=== PATIENT | female | born 1970 | race Caucasian/White ===

== ENCOUNTER 2018-03-07 14:50 | Emergency (ER) | payer MEDICAID | END 2018-03-07 16:22 | disposition home or self-care (01) | LOC: D.ER 14:50 | DX: J20.9 Acute bronchitis, unspecified (principal) ==

== ENCOUNTER 2018-12-27 13:17 | Emergency (ER) | payer MEDICAID ==
[~2018-12-27] VITALS: Ht 160 cm; Wt 120.5 kg
[2018-12-27 13:31] VITALS: Ht 160 cm; Wt 120.5 kg
[2018-12-27 14:18] LABS: BASOPHILS 0.6 % (0-2); EOSINOPHILS 5.9 % (0-7); HEMATOCRIT 36.2 % (36.0-48.0); HEMOGLOBIN 11.2 g/dL (12-16); IMMATURE GRANULOCYTES 0.2 % (0-5); LYMPHOCYTES 24.3 % (15-50); MCH 23.7 pg (26.0-34.0); MCHC 30.9 g/dL (31.0-37.0); MCV 76.7 fL (80.0-100.0); MEAN PLATELET VOLUME 10.2 fL (7.4-10.4); MONOCYTES 17.1 % (2-11); NEUTROPHILS 51.9 % (40-80); PLATELET COUNT 182 10x3/uL (130-400); RBC 4.72 10x6/uL (4.00-5.40); RDW 14.2 % (11.5-14.5); WBC 5.4 10x3/uL (4.8-10.8)
[2018-12-27 14:40] LABS: ALBUMIN 3.3 g/dL (3.4-5.0); ALKALINE PHOSPHATASE 129 U/L (46-116); ALT (SGPT) 46 U/L (10-68); BILIRUBIN - TOTAL 0.26 mg/dL (0.2-1.3); CALC OSMOLALITY 280 mosm/kg (275-300); CALCIUM 8.3 mg/dL (8.5-10.1); CARBON DIOXIDE 30.1 mmol/L (21.0-32.0); CHLORIDE - SERUM 105 mmol/L (98-107); CREATININE - SERUM 0.9 mg/dL (0.6-1.3); GLUCOSE 89 mg/dL (74-106); POTASSIUM - SERUM 3.8 mmol/L (3.5-5.1); PROTEIN - SERUM 7.2 g/dL (6.4-8.2); SODIUM 142 mmol/L (136-145); UREA NITROGEN 10 mg/dL (7-18); eGFR NON AFRICAN AMERICAN 70 mL/min (90-120)
[2018-12-27 14:52] LABS: CKMB 0.4 U/L (0.0-3.6); CREATINE KINASE 96 UL (21-215); PRO BNP 25 pg/mL (0-125); TROPONIN-I < 0.017 ng/mL (0.000-0.060)
[2018-12-27] MEDS ORDERED: PREDNISONE20 MG PO (16:18)
[2018-12-27] MEDS ORDERED: VIBRAMYCIN 100100 MG PO (16:18)
[2018-12-27] MEDS ORDERED: ALBUTEROL SULF8.5 GM INH (16:18)
[2018-12-27 17:28] VITALS: BP 132/59
== END 2018-12-27 17:28 | disposition home or self-care (01) ==
LOC: D.ER 13:17
PROVIDERS: Family Medicine
DX: J40 Bronchitis, not specified as acute or chronic (principal); R09.89 Other specified symptoms and signs involving the circulatory and respiratory systems

== ENCOUNTER 2019-02-25 13:40 | Emergency (ER) | payer BC, MEDICAID ==
[~2019-02-25] VITALS: Ht 160 cm; Wt 120.5 kg
[~2019-02-25 13:40] MED LIST: ALBUTEROL SULF8.5 GM INH; PREDNISONE20 MG PO; VIBRAMYCIN 100100 MG PO
[2019-02-25 14:08] VITALS: Ht 160 cm; Wt 120.5 kg
[2019-02-25 14:56] LABS: APPEARANCE CLEAR (CLEAR); BILIRUBIN NEGATIVE (NEGATIVE); COLOR YELLOW (YELLOW); GLUCOSE NEGATIVE (NEGATIVE); KETONE NEGATIVE (NEGATIVE); NITRITE NEGATIVE (NEGATIVE); PROTEIN NEGATIVE (NEGATIVE); SPECIFIC GRAVITY 1.015 (1.005-1.020); UROBILINOGEN NORMAL (NORMAL)
[2019-02-25 14:57] LABS: BACTERIA MODERATE /hpf (NONE SEEN); EPITHELIAL CELLS 0-5 /hpf (0-5); RED CELLS - URINE 0-5 /hpf (0-5); WHITE CELLS - URINE 0-5 /hpf (0-5)
[2019-02-25 15:32] LABS: BASOPHILS 0.1 % (0-2); EOSINOPHILS 0.6 % (0-7); HEMOGLOBIN 12.3 g/dL (12-16); IMMATURE GRANULOCYTES 0.3 % (0-5); LYMPHOCYTES 10.4 % (15-50); MCH 23.7 pg (26.0-34.0); MCHC 31.5 g/dL (31.0-37.0); MCV 75.3 fL (80.0-100.0); MEAN PLATELET VOLUME 9.9 fL (7.4-10.4); NEUTROPHILS 80.6 % (40-80); RBC 5.18 10x6/uL (4.00-5.40); RDW 14.4 % (11.5-14.5); WBC 11.6 10x3/uL (4.8-10.8)
[2019-02-25 15:43] LABS: PLATELET COUNT 220 10x3/uL (130-400)
[2019-02-25 15:56] LABS: ALBUMIN 3.5 g/dL (3.4-5.0); ANION GAP 13.3 mmol/L (8-16); BILIRUBIN - TOTAL 0.56 mg/dL (0.2-1.3); CALCIUM 8.8 mg/dL (8.5-10.1); CARBON DIOXIDE 30.5 mmol/L (21.0-32.0); CREATININE - SERUM 1.1 mg/dL (0.6-1.3); POTASSIUM - SERUM 3.8 mmol/L (3.5-5.1); PROTEIN - SERUM 8.6 g/dL (6.4-8.2)
[2019-02-25 17:04] LABS: CREATINE KINASE 48 UL (21-215)
[2019-02-25 17:06] LABS: TROPONIN-I < 0.017 ng/mL (0.000-0.060)
[2019-02-25] MEDS ORDERED: FLAGYL500 MG PO (19:26)
[2019-02-25] MEDS ORDERED: ZOFRAN ODT4 MG/UDTAB PO (19:26)
[2019-02-25] MEDS ORDERED: MACROBID100 MG PO (19:26)
[2019-02-25 19:57] VITALS: BP 118/76
== END 2019-02-25 19:58 | disposition home or self-care (01) ==
LOC: D.ER 13:40
PROVIDERS: Family Medicine
DX: R10.9 Unspecified abdominal pain (principal); N76.0 Acute vaginitis

== ENCOUNTER 2019-03-19 21:27 | Observation (INO) | payer BC, MEDICAID ==
[~2019-03-19] VITALS: Ht 160 cm; Wt 115.3 kg
[~2019-03-19 21:27] MED LIST changes: +FLAGYL500 MG PO; +MACROBID100 MG PO; +ZOFRAN ODT4 MG/UDTAB PO
[2019-03-19 22:28] LABS: HEMATOCRIT 36.4 % (36.0-48.0); HEMOGLOBIN 11.3 g/dL (12-16); MCH 23.3 pg (26.0-34.0); MCV 74.9 fL (80.0-100.0); PLATELET COUNT 253 10x3/uL (130-400); RBC 4.86 10x6/uL (4.00-5.40); RDW 14.6 % (11.5-14.5); WBC 8.6 10x3/uL (4.8-10.8)
[2019-03-19 22:32] LABS: APTT 24.4 SECONDS (22.8-39.4); INR 1.01 (0.85-1.17); PROTIME 12.8 SECONDS (11.6-15.0)
[2019-03-19 22:39] LABS: ALBUMIN 3.2 g/dL (3.4-5.0); ALKALINE PHOSPHATASE 107 U/L (46-116); ALT (SGPT) 34 U/L (10-68); BILIRUBIN - TOTAL 0.25 mg/dL (0.2-1.3); CALC OSMOLALITY 280 mosm/kg (275-300); CALCIUM 8.8 mg/dL (8.5-10.1); CARBON DIOXIDE 30.4 mmol/L (21.0-32.0); CHLORIDE - SERUM 103 mmol/L (98-107); GLUCOSE 144 mg/dL (74-106); POTASSIUM - SERUM 4.1 mmol/L (3.5-5.1); PROTEIN - SERUM 7.8 g/dL (6.4-8.2); SODIUM 139 mmol/L (136-145); UREA NITROGEN 13 mg/dL (7-18); eGFR NON AFRICAN AMERICAN 62 mL/min (90-120)
--- NOTE | 2019-03-19 22:43 | NUR ---
CHEST PAIN 6/10. FIRST NITRO ADMINISTERED.
--- NOTE | 2019-03-19 22:55 | NUR ---
CHEST PAIN 5/10 AT THIS TIME. SECOND NITRO ADMINISTERED.
--- NOTE | 2019-03-19 23:00 | NUR ---
PAIN 3/10. THIRD NITRO ADMINISTERED.
[2019-03-19 23:03] LABS: EOSINOPHILS 2 % (0-7); LYMPHOCYTES 17 % (15-50); MONOCYTES 6 % (2-11); NEUTROPHILS 74 % (40-80); PLATELET ESTIMATE NORMAL
[2019-03-19 23:04] LABS: CKMB 0.4 U/L (0.0-3.6); CREATINE KINASE 258 UL (21-215); MAGNESIUM - SERUM 1.8 mg/dL (1.8-2.4); TROPONIN-I < 0.017 ng/mL (0.000-0.060)
--- NOTE | 2019-03-19 23:05 | NUR ---
PAIN 1/10 AFTER 3RD NITRO.
[2019-03-19 23:36] VITALS: BP 94/40
[2019-03-20] VITALS (7 sets, daily range): BP systolic 117–130; BP diastolic 72–84; Ht 160 cm; Wt 115.3 kg
--- NOTE | 2019-03-20 03:05 | NUR ---
PT ARRIVED TO ROOM 2103 ADMIT ASSESSMENT COMPLETE. PT IS AAO. LEFT WRIST 22G PIV S/L SWAB CAP PLACED. PUT IN HISTORY. PT STATES NO HOME MEDS PRESCRIBED. HISTORY COMPLETE. TELEMETRY PLACED. PT DENIES ANY NEEDS. DENIES ANY CHEST PAIN AT THIS TIME. PT ORIENTED TO ROOM AND CALL LIGHT. NAME AND DATE PLACED ON BOARD. WILL CPOC
--- NOTE | 2019-03-20 03:16 | NUR ---
PT IS 95 NORMAL SINUS ON MONITOR
[2019-03-20 05:05] LABS: CKMB 0.2 U/L (0.0-3.6); CREATINE KINASE 565 UL (21-215); TROPONIN-I < 0.017 ng/mL (0.000-0.060)
--- NOTE | 2019-03-20 05:32 | NUR ---
PT RESTING IN BED. AAO, NO S/S OF DISTRESS. PT DENIES ANY NEEDS. DENIES ANY CHEST PAIN. PT VERBALIZED UNDERSTANDING. NPO UNTIL SEEN BY CARDIO. WILL CPOC
--- NOTE | 2019-03-20 07:22 | NUR ---
REPORT RECEIVED. WILL CONTINUE WITH POC. PT CURRENTLY LYING SEMI FOWLERS. CALL LIGHT W/I REACH. PT IS AAO AND UP AD ANNE MARIE. RR EVEN AND UNLABORED ON RA. L.WRIST IS SALINE LOCKED. PT IS NPO AT THE MOMENT. NO S/S OF DISTRESS NOTED. WILL CTM.
[2019-03-20 11:04] LABS: % SATURATION 9 % (15-55); IRON 26 ug/dl (35-150); TOTAL IRON BIND CAPACITY 267 ug/dl (260-445); UNSAT IRON BIND CAPACITY 241 ug/dl (150-375)
[2019-03-20 11:08] LABS: CKMB 0.4 U/L (0.0-3.6); CREATINE KINASE 586 UL (21-215); TROPONIN-I < 0.017 ng/mL (0.000-0.060)
[2019-03-20 11:33] LABS: FERRITIN 22 ng/mL (3-244)
--- NOTE | 2019-03-20 14:44 | NUR ---
I have reviewed this patient and I concur with the Shift Assessment completed by the Licensed Practical Nurse today this shift.
[2019-03-20 16:26] LABS: CKMB 0.1 U/L (0.0-3.6); CREATINE KINASE 651 UL (21-215)
[2019-03-20 17:04] LABS: TROPONIN-I < 0.017 ng/mL (0.000-0.060)
--- NOTE | 2019-03-20 19:57 | NUR ---
RESUMING PT CARE. PT IS ALERT LAYING IN BED. NO C/O VOICED AT THIS TIME. NO S/S OF DISTRESS NOTED. BED IN LOW POSITION WITH CALL LIGHT IN REACH. WILL CONTINUE TO MONITOR PT AND FOLLOW PLAN OF CARE.
[2019-03-21] VITALS: BP 140/70
--- NOTE | 2019-03-21 03:00 | NUR ---
I have reviewed this patient and I concur with the Shift Assessment completed by the Licensed Practical Nurse today this shift.
[2019-03-21 04:00] VITALS: BP 144/75
[2019-03-21 04:28] LABS: BASOPHILS 0.3 % (0-2); EOSINOPHILS 4.3 % (0-7); HEMATOCRIT 35.3 % (36.0-48.0); HEMOGLOBIN 10.8 g/dL (12-16); IMMATURE GRANULOCYTES 0.4 % (0-5); LYMPHOCYTES 25.2 % (15-50); MCH 23.1 pg (26.0-34.0); MCHC 30.6 g/dL (31.0-37.0); MCV 75.4 fL (80.0-100.0); MEAN PLATELET VOLUME 9.7 fL (7.4-10.4); MONOCYTES 10.8 % (2-11); PLATELET COUNT 216 10x3/uL (130-400); RBC 4.68 10x6/uL (4.00-5.40); RDW 14.8 % (11.5-14.5); WBC 7.4 10x3/uL (4.8-10.8)
[2019-03-21 04:44] LABS: ANION GAP 9.4 mmol/L (8-16); CARBON DIOXIDE 30.7 mmol/L (21.0-32.0); CREATININE - SERUM 0.9 mg/dL (0.6-1.3); POTASSIUM - SERUM 4.1 mmol/L (3.5-5.1)
[2019-03-21 07:46] VITALS: BP 130/76
[2019-03-21] MEDS ORDERED: PROTONIX40 MG PO (10:58)
[2019-03-21 11:39] VITALS: BP 112/52
--- NOTE | 2019-03-21 11:52 | NUR ---
D/C PTS L.WRIST PIV WITH CATHETER TIP FULLY INTACT. RETURNED TELEMETRY TO [facility]. PT IS GOING TO BE DISCHARGED AND VERY HAPPY ABOUT THIS. WAITING ON DISCHARGE PAPERS. NO CURRENT NEEDS. WILL CTM.
--- NOTE | 2019-03-21 12:38 | NUR ---
DISCHARGE TEACHING PROVIDED AND PAPERS SIGNED. PT VERBALIZED UNDERSTANDING AND DENIES ANY QUESTIONS OR CONCERNS. ALL BELONGINGS COLLECTED AND SENT WITH PT. PT READY TO LEAVE NOW WITH FAMILY.
[2019-03-21 13:12] LABS: FOLATE (FOLIC ACID) - SERUM 10.1 ng/mL (>3.0)
--- NOTE | 2019-03-21 15:59 | MORECARE ---
CASE MANAGEMENT DISCHARGE SUMMARY PATIENT: YOSELIN CHI UNIT: [id number] ADM DATE: 03/20/19 AGE: 48 : 66 SEX: F ROOM/BED: D.2104 AUTHOR: SANDRA JAEGER PHYSICIAN: REFERRING PHYSICIAN: MUKESH KOENIG MD DATE OF SERVICE: 03/21/19 Discharge Plan Patient Name: YOSELIN CHI [facility] [facility] 1970 Planned Disposition: Home Anticipated Discharge Date: 03/21/19 Discharge Date: 03/21/2019 Expected LOS: 1 Initial Reviewer: [email or web address] Initial Review Date: 03/21/2019 Generated: 03/21/19 4:58 pm Patient Name: YOSELIN CHI Page [phone] at 1559 All edits/amendments must be made on the electronic document DICTATION DATE: 03/21/19 1558 PIERCER: KANDI 03/21/19 1558 RPT#: [id number] DC DATE:03/21/19 STATUS: DIS IN [facility] [address] [place] [address] END OF REPORT
--- NOTE | 2019-03-22 16:41 | CN ---
PATIENT NAME:YOSELIN CHI MEDICAL RECORD: [id number] : 66 LOCATION:D. D.2104 ADMIT DATE: 03/20/19 ACCOUNT: [id number] CONSULTING PHYSICIAN: ALEN SRIVASTAVA MD REFERRING PHYSICIAN: MUKESH KOENIG MD DATE OF CONSULTATION: 03/20/2019 CARDIOLOGY CONSULTATION DIAGNOSES: 1. Chest pain. 2. Shortness of breath. 3. Family history of coronary artery disease. HISTORY OF PRESENT ILLNESS: Ms. Chi presents with chest pain. She had her first episode of chest pain last night. It did last for multiple hours. It was relieved with nitro in the Emergency Room and it has not recurred with nitro paste. There were some typical components, some atypical components for angina. It was a pressure, heavy sensation like someone was sitting on her chest, however, it radiated over to the right side rather than the left side and there was pain down her right arm. She has a risk factor really only of family history of coronary artery disease. She is a nonsmoker and does not have hypertension and hyperlipidemia. Her EKG is normal. Troponin is normal. PHYSICAL EXAMINATION: GENERAL APPEARANCE: Well-nourished, well-developed, appears stated age. Level of distress, comfortable. PSYCHIATRIC: Mental status, alert, normal affect. Orientation, oriented to time, place and person. EYES: Lids and conjunctiva, noninjected. No discharge, no pallor. ENT: Lips, teeth, gums, normal dentition. Oropharynx, no cyanosis, no pallor. NECK: Carotid arteries, bilateral normal upstroke, no bruits, no thrills. JUGULAR VEINS: No jugular venous pressure or distention. CERVICAL LYMPH NODES: Nontender, nonenlarged. THYROID: Not enlarged. Nontender. No nodules. LUNGS: Respiratory effort, unlabored. CHEST: Normal curvature. No thoracic deformity. No chest wall tenderness. Percussion, resonant. Auscultation, clear. No wheezes, no rales, no rhonchi. CARDIOVASCULAR: Precordial exam, nondisplaced. No heaves or pericardial thrills. Rate and rhythm, regular. Heart sounds, normal S1, normal S2. No S3, no gallop, no rub. Systolic murmur, not heard. Diastolic murmur, not heard. EXTREMITIES: No cyanosis, no edema. Peripheral pulses, full and equal in all extremities, except as noted. No bruits appreciated. ABDOMEN: Soft, nondistended. Normal aorta. No bruit. Nontender. No masses. Liver, nontender, no hepatomegaly. Spleen, nontender, no splenomegaly. MUSCULOSKELETAL: No joint tenderness. No joint swelling. No erythema. NEUROLOGICAL: Normal gait, normal strength, normal tone. SKIN: Warm and dry. OVERALL IMPRESSION: Chest pain, some typical components, some atypical components. She has been more short of breath as of recent. We will get an echocardiogram due to the shortness of breath, dyspnea on exertion and risk stratify with stress testing Cardiolite imaging for the chest pain. Further care depends on the findings of these studies. CONSULT REPORT [id number] YOSELIN CHI TRANSINT:[id number] Voice Confirmation ID: [id number] DOCUMENT ID: [id number] ALEN SRIVASTAVA MD at 1641 CC: [id number] DICTATION DATE: 03/20/19 0753 CLINICAL IMMUNOLOGIST: 03/20/19 0809 DIS IN 03/21/19 [facility] [address] [place] [address]
--- NOTE | 2019-03-22 16:42 | EC ---
PATIENT:YOSELIN CHI DATE OF SERVICE: 03/20/19 SEX: F MEDICAL RECORD: [id number] DATE OF : [birth year] LOCATION:D.M2 D.210 AGE OF PATIENT: 48 ADMISSION DATE: 03/20/19 REFERRING PHYSICIAN: INTERPRETING PHYSICIAN: ALEN KOCH MD ECHOCARDIOGRAM REPORT ECHO CHARGES 4 ECHO COMPLETE Date: 03/20/19 CLINICAL DIAGNOSIS: SOB ECHOCARDIOGRAPHIC MEASUREMENTS (adult normal given) AC root (d.<3.7cm) 3.5 cm LV Septum d (<1.2 cm> 1.5 cm Valve Excursion 2.0 cm LV Septum (systole) 2.0 cm Left Atria (s.<4.0cm> 3.5 cm LVPW d(<1.2cm) 1.1 cm RV (d.<2.3cm) 2.3 cm LVPW (sytole) 1.8 cm LV diastole(<5.6CM) 5.4 cm MV E-F(>70mm/sec) cm LV systole 4.1 cm LVOT Diameter 1.9 cm MV exc.(>10mm) cm Est.ejection fraction (50-75%) % DOPPLER: LVIT cm/sec A 106 cm/sec E 64.0 cm/sec LA cm/sec RVSP 20.0 mmHg LVOT 91.0 cm/sec AOP1/2T m/s Asc. Ao 159 cm/sec RVOT 101 cm/sec RA cm/sec PA 100 cm/sec AV Gradient Peak 10.1 mmHg AV Mean 5.1 mmHg AV Area 1.6 cm MV Gradient Peak 4.5 mmHg MV Mean 1.8 mmHg MV Area cm COMMENTS: Stack Clerk: Ashlie WRIGHTOE Preschool Aide: 1 Dr. Koch TAPE# PACS Pericardial Effusion N DATE OF SERVICE: 03/20/2019 ECHOCARDIOGRAM DATE OF SERVICE: 03/20/2019 FINDINGS: 1. Left ventricular chamber size is within normal limits. Left ventricular systolic function is mildly reduced, overall ejection fraction 40%. There is mild global hypokinesis throughout all segments with no discrete wall motion ECHOCARDIOGRAM REPORT [id number] YOSELIN CHI abnormalities present. 2. Left atrium, right atrium and right ventricular chamber sizes are within normal limits. 3. Valvular structures have normal structure and motion. 4. Doppler interrogation reveals trace tricuspid regurgitation, no other valvular insufficiency or stenosis. Pulmonary systolic pressure is estimated at 20 mmHg. 5. No evidence of pericardial effusion or left ventricular thrombus. TRANSINT:[id number] Voice Confirmation ID: [id number] DOCUMENT ID: [id number] ALEN KOCH MD at 1642 CC: [id number] DICTATION DATE: 03/21/19 0844 CANCELING AND CUTTING CONTROL CLERK: 03/21/19 0954 DIS IN 03/21/19 [place] [id number] [place] [id number]
--- NOTE | 2019-03-22 16:42 | ST ---
PATIENT:YOSELIN CHI MEDICAL RECORD: [id number] SEX: F LOCATION:[facility] D.210 ORDER #: ADMISSION DATE: 03/20/19 AGE OF PATIENT: 48 REFERRING PHYSICIAN: INTERPRETING PHYSICIAN: ALEN SRIVASTAVA MD DATE OF SERVICE: 03/20/2019 PROCEDURE: Nuclear stress test. INDICATION: Chest pain of unknown etiology. She was exercised on standard Lexiscan protocol with 24 mCi of sestamibi injected for stress only images. FINDINGS: Gated SPECT reveals a preserved ejection fraction approximately of 50% with normal thickening and brightening throughout all segments. SPECT imaging: Cardiolite was used as myocardial perfusion agent. There was homogeneous uptake throughout all segments with stress only images with no evidence of inducible ischemia or previous infarction. OVERALL IMPRESSION: 1. This is a normal nuclear stress test with no evidence of inducible ischemia or previous infarction. 2. Gated SPECT reveals a preserved ejection fraction in the 50% range. In this patient with ongoing symptomatology, the current scan does not suggest presence of hemodynamically significant coronary artery disease. TRANSINT:[id number] Voice Confirmation ID: [id number] DOCUMENT ID: [id number] ALEN SRIVASTAVA MD at 1642 CC: [id number] DICTATION DATE: 03/20/19 1527 APPLICATION ASSISTANT: 03/21/19 0333 DIS IN 03/21/19 [place] [id number] [place] [address]
== END 2019-03-21 12:50 | disposition home or self-care (01) ==
LOC: OBSVTIME → D.ER 21:27 → OBSVTIME 03-20 00:03 → D.EDHOLD 03-20 00:03 → D.ER 03-20 00:03 → D.M2 03-20 00:03
PROVIDERS: Family Medicine; ADMIT Internal Medicine Nephrology; ATTEND Internal Medicine Nephrology
DX: R07.89 Other chest pain (principal); D50.9 Iron deficiency anemia, unspecified; E66.01 Morbid (severe) obesity due to excess calories; Z68.41 Body mass index [BMI] 40.0-44.9, adult; I50.9 Heart failure, unspecified; J44.9 Chronic obstructive pulmonary disease, unspecified; Z82.49 Family history of ischemic heart disease and other diseases of the circulatory system

== ENCOUNTER → 2019-12-06 14:31 | Outpatient (CLI) | payer BC, MEDICAID ==
[2019-03-20 12:15] VITALS: BMI 44.4
[~2019-12-06 14:31] MED LIST changes: +ADVAIR 250-501 EAC1 INH; +AUGMENTIN 875-11 TAB PO; +BUTALB-APAP-CA1 EACH PO; +COZAAR25 MG PO; +GABAPENTIN300 MG PO; +NEURONTIN 300300 MG PO; +PROAIR INH; +PROTONIX40 MG PO; +PROVENTIL/2.5 MG/3 M INH; +TRAZODONE HCL150 MG PO; +ULTRAM50 MG PO
[2019-12-06 15:30] LABS: BASOPHILS 0.2 % (0-2); EOSINOPHILS 2.9 % (0-7); HEMOGLOBIN 10.7 g/dL (12-16); IMMATURE GRANULOCYTES 0.2 % (0-5); LYMPHOCYTES 17.8 % (15-50); MCH 22.7 pg (26.0-34.0); MCHC 29.7 g/dL (31.0-37.0); MCV 76.4 fL (80.0-100.0); MEAN PLATELET VOLUME 9.7 fL (7.4-10.4); MONOCYTES 8.1 % (2-11); NEUTROPHILS 70.8 % (40-80); PLATELET COUNT 196 10x3/uL (130-400); RBC 4.71 10x6/uL (4.00-5.40); RDW 15.2 % (11.5-14.5); WBC 5.8 10x3/uL (4.8-10.8)
== END | disposition home or self-care (01) ==
LOC: D.LAB 14:31 → D.RT 16:00
PROVIDERS: ATTEND Internal Medicine Pulmonary Disease
DX: R06.00 Dyspnea, unspecified (principal)

== ENCOUNTER → 2021-01-08 08:12 | Outpatient (CLI) | payer MEDICAID ==
[2019-12-13 12:13] VITALS: BMI 40.5
--- NOTE | ~2021-01-08 | EC ---
PATIENT:YOSELIN CHI DATE OF SERVICE: 01/08/21 SEX: F MEDICAL RECORD: [id number] DATE OF : 66 LOCATION:D.RT AGE OF PATIENT: 50 ADMISSION DATE: 01/08/21 REFERRING PHYSICIAN: INTERPRETING PHYSICIAN: EVER DURAN MD ECHOCARDIOGRAM REPORT ECHO CHARGES 4 ECHO COMPLETE Date: 01/08/21 CLINICAL DIAGNOSIS: HEART FAILURE ECHOCARDIOGRAPHIC MEASUREMENTS (adult normal given) AC root (d.<3.7cm) 3.2 cm LV Septum d (<1.2 cm> 1.2 cm Valve Excursion 2.0 cm LV Septum (systole) 1.3 cm Left Atria (s.<4.0cm> 4.2 cm LVPW d(<1.2cm) 1.0 cm RV (d.<2.3cm) 3.5 cm LVPW (sytole) 1.3 cm LV diastole(<5.6CM) 4.5 cm MV E-F(>70mm/sec) cm LV systole 3.1 cm LVOT Diameter 2.0 cm MV exc.(>10mm) cm Est.ejection fraction (50-75%) 55 % DOPPLER: LVIT cm/sec A 97 cm/sec E 76 cm/sec LA cm/sec RVSP 89 mmHg LVOT 105 cm/sec AOP1/2T m/s Asc. Ao 174 cm/sec RVOT 89 cm/sec RA 3.8 cm/sec PA 100 cm/sec AV Gradient Peak 12 mmHg AV Mean 6 mmHg AV Area 2.2 cm MV Gradient Peak 4 mmHg MV Mean 2 mmHg MV Area cm COMMENTS: Staff Development Manager: 3 SUZY OWENS Water System Operator: 4 Dr. Duran TAPE# Pericardial Effusion N DATE OF SERVICE: PROCEDURE: Transthoracic echocardiogram. FINDINGS: 1. Left ventricle: The Left ventricle shows evidence of left ventricular hypertrophy with a preserved LV systolic function. Endocardium was not well visualized. The patient has evidence of diastolic dysfunction. 2. Right ventricle is mildly dilated with normal function. 3. The left atrium is mildly dilated with normal function. ECHOCARDIOGRAM REPORT [id number] YOSELIN CHI 4. The right atrium is mildly dilated with normal function. 5. The aortic valve is grossly normal, but not well visualized. There is no evidence of significant aortic stenosis or regurgitation. 6. Mitral valve appears to be normal structurally with trace mitral regurgitation. 7. Tricuspid valve shows trivial tricuspid regurgitation and normal right ventricular systolic pressure. 8. Pulmonic valve is not well visualized, but is grossly normal. 9. Pericardium appears to be normal. IMPRESSION: The patient has evidence of mild left ventricular hypertrophy and diastolic dysfunction, but otherwise normal echocardiogram. TRANSINT:[id number] Voice Confirmation ID: [id number] DOCUMENT ID: [id number] EVER DURAN MD CC: [id number] DICTATION DATE: 01/10/21 1520 GOPHERMAN: 01/10/21 2306 DEP CLI 01/08/21 [facility] [address] [place] [address]
== END | disposition home or self-care (01) ==
LOC: D.RT 08:00 → D.ECHO 09:35
PROVIDERS: ATTEND Internal Medicine Pulmonary Disease
DX: J44.9 Chronic obstructive pulmonary disease, unspecified (principal); I50.9 Heart failure, unspecified

== ENCOUNTER 2021-01-18 12:18 | Outpatient (CLI) | payer MEDICAID ==
[~2021-01-18] VITALS: Ht 160 cm; Wt 118.2 kg
[2021-01-18 15:01] VITALS: BP 152/94; Ht 160 cm; Wt 118.2 kg
== END 2021-01-18 16:17 | disposition home or self-care (01) ==
LOC: D.OPS 12:18
PROVIDERS: ATTEND Internal Medicine Hematology & Oncology
DX: D50.9 Iron deficiency anemia, unspecified (principal)

== ENCOUNTER 2021-01-25 13:55 | Outpatient (CLI) | payer MEDICAID ==
[~2021-01-25] VITALS: Ht 160 cm; Wt 118.2 kg
[2021-01-25 14:15] VITALS: Ht 160 cm; Wt 118.2 kg
--- NOTE | 2021-01-25 15:35 | NUR ---
PT DC INSTRUCTIONS REVIEWED AT THIS TIME, PT VERBALIZES UNDERSTANING. PT IV REMOVED AT THIS TIME, INTACT, NO REDNESS OR SWELLING NOTED AT SITE.
--- NOTE | 2021-01-25 15:36 | NUR ---
PT LEFT UNIT AMBULATING AT 1537
[2021-01-26] MEDS ORDERED: TRAZODONE HCL50 MG PO (11:20)
[2021-01-26] MEDS ORDERED: ATROVENT 0.02%2.5 ML UPD (11:21)
[2021-01-26] MEDS ORDERED: AMITRIPTYLINE H50 MG PO (11:24)
== END 2021-01-25 15:37 | disposition home or self-care (01) ==
LOC: D.OPS 13:55
PROVIDERS: ATTEND Internal Medicine Hematology & Oncology
DX: D50.9 Iron deficiency anemia, unspecified (principal)

== ENCOUNTER 2021-01-26 11:04 | Day surgery (SDC) | payer MEDICAID ==
[~2021-01-26] VITALS: Ht 160 cm; Wt 118.2 kg
--- NOTE | ~2021-01-26 | HEMODYNAMI ---
PATIENT:YOSELIN CHI MEDICAL RECORD: [id number] : 66 LOCATION:[facility] ADMISSION DATE: 01/26/21 Generatedon:113:28 Patient name: YOSELIN CHI Patient #: [id number] SSN: : 1970 Date of study: 01/26/2021 Page: Of Hemodynamic Procedure Report Patient Data Patient Demographics Procedure consent was obtained First Name: YOSELIN Gender: Female Last Name: ALON : 1970 Middle Initial: GREOGRIO Age: 50 year(s) Patient #: [id number] Race: Unknown Additional ID: [id number] Contact details Address: [address] [place] [address] circle State: [place] City: [facility] Zip code: [address] Past Medical History Performed procedures and imaging results Date Procedure Procedure Results Comments Stress testing with Positive->Low risk SPECT MPI Allergies Allergen Reaction Date Comments Reported Penicillins 01/26/2021 Admission Admission Data Admission Date: 01/26/2021 Admission Time: 11:04 Arrival Date: 01/26/2021 Arrival Time: 0:00 Height (in.): 63 BSA: 2.15 (m2) Height (cm.): 160.02 BMI: 45.7 (kg/m2) Weight (lbs.): 258 Weight (kg.): 117.03 Procedure Procedure Types Cath Procedure Diagnostic Procedure LHC LH w/Coronaries Procedure Description Procedure Date Procedure Date: 01/26/2021 Procedure Start Time: 13:13 Procedure End Time: 13:24 Procedure Staff Name Function Jf Acosta MD Performing Physician Amanda Beverly RT Monitor Demetria Montesinos RT Scrub Tarik Nj RN Nurse Procedure Data Cath Procedure Fluoroscopy Diagnostic fluoroscopy Total fluoroscopy Time: 0.9 time: 0.9 min min Diagnostic fluoroscopy Total fluoroscopy dose: 347 dose: 347 mGy mGy Contrast Material Contrast Material Type Amount (ml) Isovue 300 41 Entry Location Entry Primary Successful Side Size Upsize Upsize Entry Closure Succes sful Closure Location (Fr) 1 (Fr) 2 (Fr) Remarks Device Remarks Femoral Right 5 Fr Exoseal artery Estimated blood loss: 5 ml Diagnostic catheters Device Type Used For End Catheter Placement MULTIPACK JL 4.0 5Fr Procedure catheter MULTIPACK 3DRC 5Fr Procedure catheter MULTIPACK Pigtail 5 Fr Procedure catheter Procedure Complications No complications Procedure Medications Medication Administration Route Dosage 0.9% NaCl I.V. 100 ml/hr Oxygen etCO2 Nasal cannula 2 l/min Heparin Flush Bag added to field 2 bags (1000units/500ml NS) Lidocaine 2% added to field 20 Versed I.V. 2 mg Fentanyl I.V. 100 mcg Versed I.V. 1 mg Hemodynamics Rest BSA: 2.15 (m2) O2 Consumption: Estimated: 230.88 (ml/min) O2 Consumption indexed : Estimated:107.39 (ml/min/m) Heart Rate: 97 (bpm) Pressure Samples Time Site Value (mmHg) Purpose Heart Use Rate(bpm) 13:19 LV 127/11,12 Snapshot 100 13:19 LV 144/13,17 Snapshot 102 13:20 AO 139/80(102) Pullback 99 13:20 LV 156/102,156 Pullback 99 Gradients Valve Time Site 1 Site 2 Mean SEP/DFP Peak To Heart Use (mmHg) (sec/min) Peak Rate (mmHg) (bpm) Aortic 13:20 LV AO 74 41 17 99 156/102,156 139/80(102) Calculations Valve P-P Mean Valve Index Valve Source Name Gradient Area Flow (cm2) Aortic 17 74 17 74 Snapshots Pre Cath Intra NCS Post Cath Vital Signs Time Heart Resp SPO2 etCO2 NIBP (mmHg) Rhythm Pain Sedation Rate (ipm) (%) (mmHg) Status Level (bpm) 12:54:33 96 10 100 41.1 135/92(106) NSR 0 (11) 10(A) , No pain 12:58:52 98 19 99 39.6 136/88(105) NSR 0 (11) 10(A) , No pain 13:03:05 98 27 99 38.8 138/87(113) NSR 0 (11) 10(A) , No pain 13:07:17 100 21 98 40.3 139/94(114) NSR 0 (11) 10(A) , No pain 13:11:31 96 21 98 39.6 146/93(107) NSR 0 (11) 10(A) , No pain 13:15:48 100 12 99 38.8 141/98(116) NSR 0 (11) 10(A) , No pain 13:20:03 100 23 98 38.7 139/93(121) NSR 0 (11) 10(A) , No pain Medications Time Medication Route Dose Verified Delivered Reason Notes Eff ectiveness by by 12:52:47 0.9% NaCl I.V. 100 Tarik Tarik Per ml/hr Clem Nj physician RN RN 12:52:58 Oxygen etCO2 2 Tarik Tarik for low 02 Nasal l/min Lorigan Lorigan sats cannula RN RN 12:53:10 Heparin Flush added 2 Tarik Tarik used for Bag to bags Lorigan Lorigan procedure (1000units/500ml field RN RN NS) 12:53:20 Lidocaine 2% added 20ml Tarik Tarik for local to vial Lorigan Lorigan anesthetic field RN RN 13:12:49 Versed I.V. 2 mg Tarik Tarik for Lorigan Lorigan sedation RN RN 13:12:57 Fentanyl I.V. 100 Tarik Tarik for mcg Lorigan Lorigan sedation RN RN 13:16:44 Versed I.V. 1 mg Tarik Tarik for Lorigan Lorigan sedation RN clinical pathologist Log Time Note 12:43:30 Informed consent obtained and on chart 12:43:47 Procedure Status Elective Heart Cath (OP). 12:43:49 Tarik Nj RN sent for patient. Start room use. 12:43:50 Time tracking: Regular hours (M-F 7:00 - 5:00) 12:43:53 Plan of Care:Hemodynamics will remain stable., Cardiac rhythm will remain stable., Comfort level will be maintained., Respiratory function will remain adequate., Patient/ family verbilizes understanding of procedure., Procedure tolerated without complication., Recovers from procedure without complications.. 12:44:00 H&P Date Dictated: 01/19/2021 Within 30 days and on chart., H&P Addendum completed by physician on day of procedure. (MUST COMPLETE FOR ALL OUTPATIENTS). 12:44:05 Patient allergic to Penicillins 12:46:52 Patient Weight : 258 lbs 12:46:57 Patient Height : 63 inches 12:47:03 Arrival Date: 01/26/2021 12:00:00 AM 12:48:45 Patient received from Pre/Post Procedure Room to CCL 2 Alert and oriented. Tansferred to table in Supine position. 12:48:46 Warm blankets applied, and camron hugger turned on for patient comfort. 12:48:46 Correct patient and procedure confirmed by team. 12:48:47 ECG and BP/O2 sat monitors applied to patient. 12:52:47 0.9% NaCl 100 ml/hr I.V. was administered by Tarik Nj RN; Per physician; Verbal order read back and verified. 12:52:58 Oxygen 2 l/min etCO2 Nasal cannula was administered by Tarik Nj RN; for low 02 sats; Verbal order read back and verified. 12:53:10 Heparin Flush Bag (1000units/500ml NS) 2 bags added to field was administered by Tarik Nj RN; used for procedure; Verbal order read back and verified. 12:53:20 Lidocaine 2% 20ml vial added to field was administered by Tarik Nj RN; for local anesthetic; Verbal order read back and verified. 12:53:24 Vital chart was started 12:54:57 Baseline sample Acquired. 12:55:00 Rhythm: sinus rhythm 12:55:01 Full Disclosure recording started 12:55:02 Pre-procedure instructions explained to patient. 12:55:04 Family unavailable. 12:55:05 Patient NPO since Midnight. 12:55:07 Is the patient allergic to Iodine/contrast media? No. 12:55:09 Is patient on blood thinner?No 12:55:26 Patient diabetic? No. 12:55:29 Patient not . Patient has had hysterectomy. 12:55:33 Previous problem with sedation/anesthesia? No ? 12:55:35 Snore? Yes 12:55:36 Sleep apnea? No 12:55:38 Deviated septum? No 12:55:38 Opens mouth fully? Yes 12:55:40 Sticks out tongue? Yes 12:55:43 Airway obstruction? Yes COPD 12:55:46 Dentures? No ? 12:56:00 Pre procedure: right dorsailis pedis pulse 1+ Palpable, but thready & weak; easily obliterated 12:56:02 Patient pain scale 0/10 ?. 12:56:08 IV patent on arrival in left hand with 0.9% NaCl at [facility]. 12:56:42 Lab results completed and on chart. 12:57:00 Right groin area was prepped with chlora-prep and draped in sterile fashion 12:57:01 Alarms reviewed by R. N. 12:57:02 Sharps counted by scrub and verified by R.N. 12:58:19 Use device set Femoral Dx 12:58:21 ACIST Syringe (78272) opened to sterile field. 12:58:21 Bag Decanter (2002S) opened to sterile field. 12:58:22 ACIST Hand Control (12634) opened to sterile field. 12:58:23 ACIST Manifold (48040) opened to sterile field. 12:58:24 Tegaderm 4 x 4 (1626W) opened to sterile field. 12:58:25 Medline Cath Pack ([id number]) opened to sterile field. 12:58:26 DIAGNOSTIC Multipack 5Fr catheter set (AM2324) opened to sterile field. 12:58:26 SHEATH 5FR Rincon (IHZ273) opened to sterile field. 12:58:27 EMERALD Guide Wire (293-916) opened to sterile field. 13:06:13 Zero performed for pressure channel P1 13:11:15 --------ALL STOP TIME OUT------ 13:11:15 Final Timeout: patient, procedure, and site verified with staff and physician. All members of the team are in agreement. 13:11:17 Right groin site verified by team. 13:11:20 Fire Safety Assessment: A--An alcohol-based skin anteseptic being used preoperatively., C--Open oxygen or nitrous oxide is being used., D--An ESU, laser, or fiber-optic light is being used. 13:11:22 Physical assessment completed. ASA score P 2 - A patient with mild systemic disease as per Jf Acosta MD. 13:11:24 2) 60-89 Mildly reduced kidney function, and other findings (as for stage 1) point to kidney disease. 13:11:27 Maximum allowable contrast dose (3.7 X eGFR X 0.75)172 ml. 13:11:30 Sedation plan: IV Moderate Sedation Medication:Versed, Fentanyl 13:12:49 Versed 2 mg I.V. was administered by Tarik Nj RN; for sedation; Verbal order read back and verified. 13:12:57 Fentanyl 100 mcg I.V. was administered by Tarik Nj RN; for sedation; Verbal order read back and verified. 13:13:24 Procedure started. 13:13:48 Local anesthetic to right femoral artery with Lidocaine 2% by Jf Acosta MD.INITIAL ACCESS ONLY 13:15:04 A 5 Fr sheath was inserted into the Right Femoral artery 13:15:40 A MULTIPACK JL 4.0 5Fr catheter was advanced over the wire and used for Procedure. 13:16:44 Versed 1 mg I.V. was administered by Tarik Nj RN; for sedation; Verbal order read back and verified. 13:17:17 LCA angiography performed. 13:17:20 Catheter removed. 13:17:25 A MULTIPACK 3DRC 5Fr catheter was advanced over the wire and used for Procedure. 13:18:06 RCA angiography performed. 13:18:19 Catheter removed. 13:18:49 A MULTIPACK Pigtail 5 Fr catheter was advanced over the wire and used for Procedure. 13:19:35 LV gram done using WARREN 13:19:38 Injector settings: Ml/sec: 10, Volume: 20, 13:19:39 LV hemodynamics recorded. 13:19:56 EF : 55 % 13:20:03 Catheter removed. 13:20:04 EXOSEAL 5Fr (EX500) opened to sterile field. 13:20:46 Sheath removed intact; hemostasis achieved with Exoseal to the Right Femoral artery. 13:21:39 Procedure ended.(Physican Out) 13:21:59 Fluoroscopy time 00.90 minutes. 13:22:02 Fluoroscopy dose: 347 mGy 13:22:02 Flurop Dose total: 347 13:22:09 Dose Area Product 78386 mGy/cm. 13:22:13 Contrast amount:Isovue 300 41ml. 13:22:14 Maximum allowable dose exceeded? No. 13:22:15 Sharps counted by scrub and verified by R.N. 13:22:17 Post-op/insertion site Right Femoral artery dressed using a 4 x 4 and Tegaderm. 13:22:20 Post-procedure physical assessment completed. ASA score P 2 - A patient with mild systemic disease as per Jf Acosta MD. 13:22:31 Post procedure instruction explained to patient.Patient verbalizes understanding. 13:22:31 Patient needs reinforcement of post procedure teaching. 13:22:34 Estimated blood loss: 5 ml 13:23:05 Procedure and supply charges have been captured, reviewed, submitted and are correct. 13:23:07 Procedure Complication : No complications 13:23:09 Vital chart was stopped 13:24:11 Post procedure rhythm: unchanged. 13:24:14 [facility] Findings: mild to moderate CAD (<70%) 13:24:16 Operative report dictated upon procedure completion. 13:24:16 See physician's report for complete and final results. 13:24:20 Report given to Pre/Post Procedure Room. 13:24:22 Patient transfered to Pre/Post Procedure Room with Bed. 13:24:24 Procedure ended. 13:24:24 Full Disclosure recording stopped 13:24:31 End room use (Document Last) 13:26:12 End room use (Document Last) 13:26:31 End room use (Document Last) Device Usage Item Name Manufacture Quantity Catalog Hospital Part Current Minimal L ot# / Number Charge Number Stock Stock Serial# Code ACIST Acist 1 85729 440083 354703 519396 20 Syringe Medical (57912) Systems Inc Bag Microtek 1 2001S 558039 40347 756794 5 Decanter Medical Inc. () ACIST Hand Acist 1 30211 209171 810214 087668 5 Control Medical (50397) Systems Inc ACIST Acist 1 62477 852113 261150 241297 5 Manifold Medical (20380) Systems Inc Tegaderm 4 3M 1 1626W 982156 424759 766892 5 x 4 (1626W) Medline Medline 1 [id number] 840736 71365 876072 5 Cath Pack ([id number]) DIAGNOSTIC Cardinal 1 NA9847 839416 20926 194243 30 Multipack Health 5Fr catheter set (QD6182) SHEATH 5FR Terumo 1 RSK838 098519 949835 536562 5 Rincon (FCO924) EMERALD Cardinal 1 502-455 884526 385194 657871 5 Guide Wire [facility] (502-267) MULTIPACK Cardinal 1 922245 5 JL 4.0 5Fr Health catheter MULTIPACK Cardinal 1 463490 5 3DRC 5Fr Health catheter MULTIPACK Cardinal 1 528777 5 Pigtail 5 Health Fr catheter EXOSEAL 5Fr Cardinal 1 EX500 045534 793144 970770 10 (EX500) Health Signature Audit Hume Stage Time Signature Unsigned Intra-Procedure 01/26/2021 Amanda Beverly 1:26:12 PM RT(R) Intra-Procedure 01/26/2021 Tarik 1:26:32 PM Clem RN Intra-Procedure 01/26/2021 Jf Roger 1:28:26 PM Burke ALTAMIRANO Signatures Performing Physician : Signature : Jf Acosta MD Date : Time : Monitor : Amanda Siria Signature : RT Date : Time : Nurse : Tarik Nj Signature : RN Date : Time : [address] [place] [address]
[2021-01-26] MEDS ORDERED: TRAZODONE HCL50 MG PO (11:20)
[2021-01-26] MEDS ORDERED: ATROVENT 0.02%2.5 ML UPD (11:21)
[2021-01-26] MEDS ORDERED: AMITRIPTYLINE H50 MG PO (11:24)
[2021-01-26 11:31] VITALS: BP 136/85; Ht 160 cm; Wt 118.2 kg
[2021-01-26 12:03] LABS: CALCIUM 8.9 mg/dL (8.5-10.1); CARBON DIOXIDE 29.7 mmol/L (21.0-32.0); CHOL - HDL RATIO 4.1 ratio (2.3-4.1); LDL-HDL RATIO 2.6 ratio (1.5-3.5); POTASSIUM - SERUM 3.7 mmol/L (3.5-5.1)
[2021-01-26 13:05] LABS: BASOPHILS 0.3 % (0-2); EOSINOPHILS 2.5 % (0-7); HEMATOCRIT 37.2 % (36.0-48.0); HEMOGLOBIN 11.3 g/dL (12-16); IMMATURE GRANULOCYTES 0.4 % (0-5); LYMPHOCYTE ABS# 1.39 10x3/uL (1.18-3.74); LYMPHOCYTES 19.3 % (15-50); MCH 23.3 pg (26.0-34.0); MCHC 30.4 g/dL (31.0-37.0); MCV 76.5 fL (80.0-100.0); MEAN PLATELET VOLUME 9.9 fL (7.4-10.4); MONOCYTES 10.1 % (2-11); NEUTROPHIL ABS# 4.87 10x3/uL (1.56-6.13); NEUTROPHILS 67.4 % (40-80); PLATELET COUNT 186 10x3/uL (130-400); RBC 4.86 10x6/uL (4.00-5.40); RDW 15.5 % (11.5-14.5); WBC 7.2 10x3/uL (4.8-10.8)
--- NOTE | 2021-01-26 13:36 | NUR ---
PT ARRIVES TO ROOM 4 VIA STRETCHER S/P LEFT HEART CATH. PT PLACED ON MONITIORS ALARMS ON, SEE INSPECTOR MATERIALS AND PROCESSES, IV INFUSING PER ORDERS. PT AND FAMILY MEMBER UP DATE ON PLAN OF CARE AND TO LAY FLAT WITH HEAD ON PILLOW , TIME FRAME GIVEN, PT DENIES PAIN OR NEEDS, CALL LIGHT WITHIN REACH.
--- NOTE | 2021-01-26 13:40 | NUR ---
DR LOPEZ AT BEDSIDE TO DISCUSS FINDINGS WITH FAMILY MEMBER
--- NOTE | 2021-01-26 13:55 | NUR ---
RESTING QUIETLY , VSS, SR , RIGHT GROIN SOFT WITH NO OOZING OR BLEEDING, NO PALPABLE HEMATOMA, RIGHT LOWER EXTREMITY WARM WITH CAP REFILL WNL, PEDAL PULSE PALABLE, IV INFUSING PER ORDERS, DENIES PAIN OR NEEDS AT PRESENT, CALL LIGHT WITH IN REACH
--- NOTE | 2021-01-26 14:10 | NUR ---
RESTING QUIETLY , DENIES PAIN OR NEEDS , VSS, SR NO ECTOPY, RIGHT GROIN SOFT NO OOZING OR BLEEDING NOTED, PEDAL PULSE PALPABLE, IV INFUSING PER ORDERS, CORDELL BATHROOM MEEDS, DENIES PAIN OR NEEDS, CALL LIGHT WITHIN REACH.
--- NOTE | 2021-01-26 14:30 | NUR ---
PT PLACED IN SEMI FOWLERS POSITION, RIGHT GROIN STABLE NO OOZING OR BLEEDING NOTED, OPSITE C/D/I, NO PALPALBE HEMATOMA, EXTREMITY PINK AND WARM, PEDAL PULSE PALPABLE, DENIES PAIN OR NEEDS , IV INFUSING PER ORDERS, SANDWICH AND PO FLUIDS GIVEN. DENIES BATHROOM NEEDS AT PRESENT, CALL LIGHT WITHIN REACH
--- NOTE | 2021-01-26 14:40 | NUR ---
EYES CLOSED AROUSES EASILY, AAOOX3, VSS, SR, RIGHT GROIN SOFT WITH NO PALPABLE HEMATOMA, NO OOZING OR BLEEDING NOTED, IV INFUSING PER ORDERS, PT DENIES PAIN OR NEEDS AT PRESENT, CALL LIGHT WITHIN REACH. QUESTIONS AND CONCERNS ADDRESSED
--- NOTE | 2021-01-26 15:15 | NUR ---
RIGHT GROIN SOFT NO OOZING OR BLEEDING NOTED, RIGHT LOWER EXTREMITY PINK AND WARM WITH CAP REFILL WNL AND PEDAL PULSE PALPABLE, VSS, SR, IV REMOVED PER ORDERS CATHETER INTACT 2X2 DRESSING APPLIED, DISHCARGE TEACHING STARTED, PT AMBULATES TO BATHROOM VOIDS WITHOUT DIFFICULTY, DENIES PAIN OR NEEDS, FAMILY MEMBER AT BEDSIDE.
--- NOTE | 2021-01-26 15:26 | NUR ---
DISCHARGE INSTRUCTIONS REVIEWED WITH PT AND FAMILY MEMBER, VERBALIZED UNDERSTANDING, QUESTIONS AND CONCERNS ADDRESSED, RIGHT GROIN STABLE NO OOZING OR BLEEDING NOTED, NO PALPABLE HEMATOMA, OPSITE C/D/I, PEDAL PULSE PALPABLE, DENIES PAIN OR NEEDS, TAKEN TO PRIVATE VEHICLE VIA WHEELCHAIR
--- NOTE | 2021-01-27 16:12 | OP ---
PATIENT NAME: YOSELIN CHI MEDICAL RECORD: [id number] :66 LOCATION:D.CAT ADMISSION DATE: SURGEON: SUSY LOPEZ MD DATE OF OPERATION: 01/26/2021 PROCEDURE: Left heart catheterization, selective coronary angiography, right femoral artery approach. CATHETERS: A 5-Malay sheath, 5/4 left and right Jane, 5/4 pig. The procedure was well tolerated. he patient was returned to the masters. Sheath removed. ExoSeal device placed. FINDINGS: Left ventriculography in 30-degree WARREN view: Normal wall motion and normal systolic function. CORONARY ANATOMY: Left main: The left main is free of disease. LAD: Free of disease in the diagonal system. CIRCUMFLEX: Free of disease in the marginal system. Right coronary artery: Dominant artery, gives rise to PDA, free of disease. IMPRESSION: Normal systolic function, normal coronary anatomy. TRANSINT:[id number] Voice Confirmation ID: [id number] DOCUMENT ID: [id number] SUSY LOPEZ MD at 1612 CC: [id number] DICTATION DATE: 01/26/21 1327 CITY DESIGNER: 01/26/21 1749 [facility] 01/26/21 [address] [place] [address]
== END 2021-01-26 15:28 | disposition home or self-care (01) ==
LOC: D.CATH 11:04
PROVIDERS: ATTEND Internal Medicine Interventional Cardiology
DX: R00.0 Tachycardia, unspecified (principal); J44.9 Chronic obstructive pulmonary disease, unspecified; I20.9 Angina pectoris, unspecified; I10 Essential (primary) hypertension; E78.5 Hyperlipidemia, unspecified

== ENCOUNTER → 2021-03-26 12:36 | Outpatient (CLI) | payer MEDICAID ==
[2021-01-26 11:31] VITALS: BMI 46.1
[~2021-03-26 12:36] MED LIST changes: +AMITRIPTYLINE H50 MG PO; +ATROVENT 0.02%2.5 ML UPD; +TRAZODONE HCL50 MG PO
== END | disposition home or self-care (01) ==
LOC: D.RAD 12:36 → D.LAB 03-29 09:30 → D.RAD 03-29 10:00
PROVIDERS: ATTEND Internal Medicine Pulmonary Disease
DX: R06.00 Dyspnea, unspecified (principal); J20.9 Acute bronchitis, unspecified